=== PATIENT | male | born 1975 | race Two or more races ===

== ENCOUNTER 2017-12-11 17:37 | Emergency (ER) | payer OTHER ==
--- NOTE | 2017-12-13 11:13 | ED Physician Chart ---
ED Chief Complaint/HPI - Patient Information Date Seen:: 12/11/17 Time Seen:: 17:20 Chief Complaint:: SWOLLEN LIPS SINCE LAST EVENING. History of Present Illness:: SWOLLEN LIPS SINCE LAST EVENING. HE TAKES LISINOPRIL FOR HTN AND HAS HAD 3 SIMILAR EPISODES OVER THE PAST 4 MONTHS. HE HAS HAD NO ASSOCIATED RASH, STRIDOR , DIFFICULTY BREATHING OR SWELLING OF TONGUE OR UVULA. Allergies:: Allergies Allergy/AdvReac Type Severity Reaction Status Date / Time No Known Allergies Allergy Verified 12/11/17 17:41 ED Review of Systems - Review of Systems General/Constitutional: No fever, No chills, No weakness, No edema, No loss of appetite Skin: No skin lesions, No rash Head: No headache, No light-headedness Eyes: No loss of vision, No diplopia ENT: No earache, No sore throat Neck: No neck pain, No thyromegaly, No mass noted Cardio Vascular: No edema Pulmonary: No SOB, No wheezing GI: No nausea, No vomiting, No diarrhea, No pain G/U: No dysuria Musculoskeletal: No bone or joint pain, No back pain Endocrine: No polyuria, No polydipsia Psychiatric: No prior psych history, No anxiety Hematopoietic: No bruising Allergic/Immuno: No urticaria Neurological: No syncope, No focal symptoms, No seizure, No dizziness, No confusion, No vertigo ED Past Medical History - Past Medical History Past Medical History: HTN, Dyslipidemia Social History: Non Smoker, No Alcohol, No Drug Use, Employment:: EMPLOYED A COOK AT [employer]. Family Medical History - Family Member Mother History Unknown: Yes ED Physical Exam - Physical Examination General/Constitutional: Awake, Well-developed, well-nourished, Alert, No distress, Non-toxic appearing, Ambulatory Head: Atraumatic Eyes: Lids, conjuctiva normal, PERRL, EOMI Skin: Nl inspection, No rash, No skin lesions, No ecchymosis, Well hydrated, No lymphadenopathy ENMT: Nasal exam nl, Oropharynx nl, Tonsils nl Other ENMT comments:: LIPS . Symmetrically swollen Neck: Nontender, Full ROM w/o pain, No JVD, No nuchal rigidity, No bruit, No mass, No stridor Respiratory: Nl effort/Exclusion, Clear to Auscultation, No Wheeze/Rhonchi/Rales Cardio Vascular: RRR, No murmur, gallop, rubs, NL S1 S2 Other Cardio Vascular comments:: naren. Normal pulses in all four extremities GI: No tenderness/rebounding/guarding, No organomegaly, No hernia, Normal BS's, Nondistended, No mass/bruits, No McBurney tenderness : No CVA tenderness, NL external genitalia Other comments:: ies. Rectal examination deferred at my discretion Extremities: No tenderness or effusion, Full ROM, normal strength in all extremities, No edema, Normal digits & nails Neuro/Psych: Alert/oriented, Normal sensory exam, Normal motor strength, Judgement/insight normal, Mood normal, Normal gait, No focal deficits Misc: Normal back, No paraspinal tenderness ED Labs/Radiology/EKG Results - Lab Results Results: No laboratory or radiographic Studies were indicated ED Assessment - Assessment General Assessment: CASE SUMMARY: CTHIS 42 YEAR OLD MALE PRESENTED WITH SWOLLEN LIPS SINCE LAST EVENING. THE PT TAKES LISINOPRIL AND HE HAS EXPERIENDED 3 PRIOR EPISODEDS OVER THE PAST 4 MONTHS. A CLINICAL DIAGNOSIS OF LISINOPRIL INDUCED ANGIOEDEMA WAS MADE. THERE WAS NO SWELLING OF THE TONGUE OR UVULA. THE PT WAS GIVEN A RX FOR BENADRYL 50 MG TO BE TAKEN TID FOR 5 DAYS. HE WAS ADVISED TO DISCONINUE TAKING LISINOPRIL AND TO SEE HIS DOCTOR FOR A DIFFERENT HTN MEDICATION. HE WAS FURTHER ADVISED TO RETURN TO THE ER IF THERE WAS ANY FURTHER SWELLING OR ANY DIFFICULTY BREATHING. MDM DDX SWOLLEN LIPS: NOT ALLERGIC REACTION: NOT LOCAL TRAUMA BASED ON HISTORY. ED Septic Shock - . Is Septic Shock (SBP<90, OR Lactate>4 mmol\L) present?: No ED Reassessment (Disposition) - Reassessment Reassessment Condition:: Improved - Diagnosis Diagnosis:: ANGIOEDEMA SECONDARY TO TAKING LISINOPRIL, HYPERTENSION - Patient Disposition Discharge/Transfer:: Home ED Discharge Plan - Patient Disposition Admit/Discharge/Transfer: PT DISCHARGED HOME Condition at Disposition: Stable Instructions: Angioedema, [id number] Additional Instructions: PLS FOLLOW UP WITH PCP IN 1-2 DAYS. RETURN TO ER IF SYMPTOMS WORSEN.
== END 2017-12-11 18:50 | disposition home or self-care (01) ==
LOC: ER 17:37 → EEVIPCON 17:37 → ER 18:50
DX: T78.3XXA Angioneurotic edema, initial encounter (principal); I10 Essential (primary) hypertension; E78.5 Hyperlipidemia, unspecified

== ENCOUNTER 2018-02-03 11:37 | Emergency (ER) | payer OTHER ==
--- NOTE | 2018-02-03 12:02 | ED Physician Chart ---
ED Chief Complaint/HPI - Patient Information Date Seen:: 02/03/18 Time Seen:: 11:55 Chief Complaint:: Low back pain History of Present Illness:: 42 yo male had sudden onset of low back pain after lifting heavy object at work this morning. He then developed numbness and tingling in the left lower extremity from left buttock to the toes. He denied any urinary or fecal incontinence. Denied saddle paresthesia. Patient took ibuprofen 800mg without relief of the low back pain. Allergies:: Allergies Allergy/AdvReac Type Severity Reaction Status Date / Time No Known Allergies Allergy Verified 12/11/17 17:41 Vitals:: Vital Signs - 8 hr 02/03/18 11:50 Temp 98.3 F HR 89 RR 16 BP 131/72 O2 Sat % 97 ED Review of Systems - Review of Systems General/Constitutional: No fever Skin: No rash Head: No headache Eyes: No pain ENT: No nasal drainage Neck: No neck pain Cardio Vascular: No chest pain Pulmonary: No SOB GI: No nausea, No vomiting Musculoskeletal: Back pain Neurological: Paresthesia ED Past Medical History - Past Medical History Past Medical History: HTN, DM Social History: Non Smoker, No Alcohol, No Drug Use Surgical History: other (lipoma removal, left radial nerve reposition, left carpal tunnel release) Family Medical History - Family Member Mother History Unknown: Yes ED Physical Exam - Physical Examination General/Constitutional: Awake Head: Atraumatic Eyes: PERRL Skin: No skin lesions ENMT: Nasal exam nl Neck: No nuchal rigidity Respiratory: No Wheeze/Rhonchi/Rales Cardio Vascular: RRR, No murmur, gallop, rubs, NL S1 S2 GI: No tenderness/rebounding/guarding Other Extremities comments:: Left straight leg raise test positive. Painful ROM lumbar spine Neuro/Psych: Normal gait ED Labs/Radiology/EKG Results - Radiology Results Results: Lumbar spine X ray: mild degenerative changes ED Assessment - Assessment General Assessment: Lumbago Left lumbar radiculopathy Assessment/Comments:: Urine drug screen Lumbar spine X ray Toradol 60mg IM Flexeril 10mg PO D/c home Ibuprofen 800mg bid x 7days Flexeril 10mg bid prn for muscle spasm #6 F/u PCP for physical therapy and possible L-spine MRI if indicated ED Septic Shock - . Is Septic Shock (SBP<90, OR Lactate>4 mmol\L) present?: No - <6hrs of presentation: Vital Signs: Vital Signs - 8 hr 02/03/18 11:50 Temp 98.3 F HR 89 RR 16 BP 131/72 O2 Sat % 97 ED Reassessment (Disposition) - Reassessment Reassessment Condition:: Improved - Patient Disposition Discharge/Transfer:: Home ED Discharge Plan - Patient Disposition Admit/Discharge/Transfer: PT DISCHARGED HOME Condition at Disposition: Stable
[2018-02-03 12:48] LABS: AMPHETAMINE URINE NEGATIVE (NEGATIVE); BARBITURATES URINE NEGATIVE (NEGATIVE); BENZODIAZEPINES QUAL URINE NEGATIVE (NEGATIVE); CANNABINOID THC NEGATIVE (NEGATIVE); COCAINE METABOLITE QUAL URINE NEGATIVE (NEGATIVE); METHADONE URINE NEGATIVE (NEGATIVE); METHAMPHETAMINES QUAL URINE NEGATIVE (NEGATIVE); OPIATES (MORPHINE) QUAL. URINE NEGATIVE (NEGATIVE); PHENCYCLIDINE (PCP) URINE NEGATIVE (NEGATIVE); TRICYCLICS (TCA) QUAL. URINE NEGATIVE (NEGATIVE)
--- NOTE | 2018-02-04 09:34 | Diagnostic Imaging Report ---
Exam: Lumbar cervical spine. HISTORY: Pain Findings: Multiple views of lumbar sacral spine reviewed. The study somewhat limited due to patient body size If clinically indicated CT examination of the helpful There is evidence for narrowing of the L4-L5 L5-S1 intervertebral disc space. There is no evidence of a spondylolysis or spondylolisthesis number no prevertebral soft tissue swelling is noted. The visualized pedicles are intact. IMPRESSION: Mild degenerative changes lower lumbar cervical spine, the study is limited due to patient size clinical correlation and or CT examination of the lumbar sacral spine might be helpful.
== END 2018-02-03 13:39 | disposition home or self-care (01) ==
LOC: ER 11:37
DX: M54.16 Radiculopathy, lumbar region (principal); I10 Essential (primary) hypertension; E11.9 Type 2 diabetes mellitus without complications
CPT/HCPCS: 99285; 96372; 72110; 80307; J1885; Z7610

== ENCOUNTER 2018-10-30 18:33 | Emergency (ER) | payer OTHER ==
--- NOTE | 2018-10-30 19:29 | ED Physician Chart ---
ED Chief Complaint/HPI - Patient Information Date Seen:: 10/30/18 Time Seen:: 19:23 Chief Complaint:: Low back pain and left thigh pain History of Present Illness:: 43 yo male with history of low back pain and left leg pain, developed again low back pain radiating to left buttock, left thigh and knee for 1 day. [place] The pain got worse afternoon and patient could not walk. Since last ER visit in January,, patient had MRI lumbar spine which showed 2 levels small disc bulging. Patient received physical therapy for 8 sessions. Patient also had left knee pain for 3 months. Allergies:: Allergies Allergy/AdvReac Type Severity Reaction Status Date / Time No Known Allergies Allergy Verified 12/11/17 17:41 Vitals:: Vital Signs - 8 hr 10/30/18 18:47 Temp 97.9 F HR 79 RR 18 BP 123/92 O2 Sat % 98 ED Review of Systems - Review of Systems General/Constitutional: No fever Skin: No rash Head: No headache Eyes: No pain ENT: No nasal drainage Neck: No neck pain Cardio Vascular: No chest pain Pulmonary: No SOB GI: No nausea, No vomiting Musculoskeletal: Back pain Hematopoietic: No bruising Neurological: No focal symptoms ED Past Medical History - Past Medical History Past Medical History: HTN, DM, Renal stone, Other (obesity) Social History: Non Smoker, Alcohol (occasional ), No Drug Use Surgical History: other (Left elbow surgery, left flank lipoma) Family Medical History - Family Member Mother History Unknown: Yes ED Physical Exam - Physical Examination General/Constitutional: Awake, Alert Head: Atraumatic Eyes: PERRL, EOMI Skin: No skin lesions ENMT: Nasal exam nl Neck: No nuchal rigidity Respiratory: No Wheeze/Rhonchi/Rales Cardio Vascular: RRR, No murmur, gallop, rubs, NL S1 S2 GI: No tenderness/rebounding/guarding Other Extremities comments:: Lumbar tenderness. Right straight leg raise test caused significant low back pain. Normal b/l EHL Neuro/Psych: Alert/oriented ED Labs/Radiology/EKG Results - Radiology Results Results: Lumbar spine X ray: mild to moderate degenerative changes greatest at L4-5 level ED Assessment - Assessment General Assessment: Acute exacerbation of chronic low back pain Assessment/Comments:: Lumbar spine X ray Toradol 60mg IM ED Septic Shock - . Is Septic Shock (SBP<90, OR Lactate>4 mmol\L) present?: No - <6hrs of presentation: Vital Signs: Vital Signs - 8 hr 10/30/18 18:47 Temp 97.9 F HR 79 RR 18 BP 123/92 O2 Sat % 98 ED Reassessment (Disposition) - Reassessment Reassessment:: Low back pain improved with toradol D/c home Ibuprofen 800mg bid x 7 days F/u PCP for physical therapy Reassessment Condition:: Improved
--- NOTE | 2018-10-31 09:56 | Diagnostic Imaging Report ---
Lumbar spine 3 views Indication: Low-back pain radiating to the left leg Comparison: Lumbar spine x-rays 02/03/2018 Findings: No acute compression fracture or subluxation. Mild to moderate degenerative changes are noted with multilevel mild disc space loss of height most pronounced at L4/L5. There is probable posterior disc osteophytic spur with calcification at L4/L5. There is partial sacralization of L5/S1 on the left with pseudoarthrosis. Impression: Mild to moderate degenerative changes greatest at L4/L5 with probable small calcified posterior disc ossify complex at this level. Given patient's clinical history, consider further assessment with MRI examination. 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 In the setting of trauma, if clinical symptoms persist and there is continued concern for an occult fracture, follow up exams in 5-7 days is suggested.
== END 2018-10-30 21:34 | disposition home or self-care (01) ==
LOC: ER 18:33
DX: M54.5 Low back pain (principal); G89.29 Other chronic pain; I10 Essential (primary) hypertension; E11.9 Type 2 diabetes mellitus without complications; Z87.442 Personal history of urinary calculi
CPT/HCPCS: 99283; 96372; 72110; J1885; Z7502